=== PATIENT | male | born 1975 | race Caucasian/White ===

== ENCOUNTER 2020-06-30 16:39 | Emergency (ER) | payer BC ==
[2020-06-30 17:37] LABS: HEMOGLOBIN 13.7 gm/dl (14.0-17.5); RED BLOOD COUNT 4.62 M/UL (4.20-5.50); WHITE BLOOD COUNT 9.8 K/UL (4.5-11.0)
[2020-06-30 17:59] LABS: BUN/CREATININE RATIO 16 (0-10)
[2020-06-30] MEDS ORDERED: KEPPRA500 MG PO (18:40)
== END 2020-06-30 18:55 | disposition home or self-care (01) ==
LOC: ER1 16:39
PROVIDERS: Student in an Organized Health Care Education/Training Program
DX: R56.9 Unspecified convulsions (principal)
CPT/HCPCS: 80053; 82550; 82553; 83874; 84484; 85025; 93005; 96365; 99284; J1953

== ENCOUNTER → 2020-09-14 | Outpatient (CLI) | payer BC ==
[~2020-09-14] MED LIST: KEPPRA500 MG PO
== END ==
LOC: EMI 14:00
DX: G40.209 Localization-related (focal) (partial) symptomatic epilepsy and epileptic syndromes with complex partial seizures, not intractable, without status epilepticus (principal)
CPT/HCPCS: 70553; A9577